=== PATIENT | male | born 1970 | race Caucasian/White ===

== ENCOUNTER 2016-11-15 00:51 | Emergency (ER) | payer OTHER ==
[2016-11-15] MEDS ORDERED: ONDANSETRON 4 MG/2 ML VIAL IVP STA (02:04)
[2016-11-15] MEDS ORDERED: SODIUM CHLORIDE 0.9% 1,000 ML IV ONE (02:05)
[2016-11-15] MEDS ORDERED: FAMOTIDINE 20 MG/2 ML VIAL IV STA (02:11)
[2016-11-15 02:34] LABS: Basophils % (A) 0 %; CH 28.9; CHCM 33.7; Eosinophils % (A) 0 %; HCT 42.3 % (39.0-53.0); HDW 2.37; HGB 14.1 gm/dL (13.0-17.5); Luc # (Auto) 0.06; Luc % (Auto) 1; Lymphocytes # (A) 0.6 k/uL (1.0-4.8); Lymphocytes % (A) 5 %; MCH 28.7 pg (25.0-35.0); MCHC 33.3 g/dL (31.0-37.0); MCV 86.1 fL (80.0-100.0); Mean Platelet Volume 7.5; Monocytes # (A) 0.6 k/uL (0-1.0); Monocytes % (A) 5 %; Neutrophils # (A) 11.1 k/uL (1.3-7.7); Neutrophils % (A) 90 %; RBC 4.91 m/uL (4.30-5.90); WBC 12.4 k/uL (3.8-10.6); WBC (Perox) 12.66
--- NOTE | 2016-11-15 02:35 | ED ---
General Adult HPI - General Chief complaint: Abdominal Pain Stated complaint: abd pain Time Seen by Provider: 11/15/16 01:19 Source: patient, RN notes reviewed Mode of arrival: ambulatory Limitations: no limitations - History of Present Illness Initial comments: This is a 45-year-old male who presents with epigastric pain that woke him up in the middle of the night on tuesday. Patient states the pain is constant. Patient has not taken anything for the pain. Patient also complains of nausea, but denies any vomiting, diarrhea or constipation. Patient denies any hematochezia, hematemesis, hematuria, dysuria, fever or chills. Patient denies any past medical history and patient is not currently on any medication. Patient denies any history of GERD. Patient denies tobacco, alcohol use or drug use. Patient has never had this pain before. Patient denies any recent fever, chills, shortness breath, cough, congestion, headache, chest pain,back pain, numbness, tingling, hematuria, headache, or visual changes, or any other complaints. - Related Data Previous Rx's Medication Instructions Recorded Ondansetron Odt [Zofran Odt] 4 mg PO Q8H 3 Days 11/15/16 traMADol HCL [Ultram] 50 mg PO Q6HR #12 tab 11/15/16 Allergies Allergy/AdvReac Type Severity Reaction Status Date / Time No Known Allergies Allergy Verified 11/15/16 00:57 Review of Systems ROS Statement: Those systems with pertinent positive or pertinent negative responses have been documented in the HPI. ROS Other: All systems not noted in ROS Statement are negative. Past Medical History Past Medical History: No Reported History History of Any Multi-Drug Resistant Organisms: None Reported Past Surgical History: No Surgical Hx Reported Past Psychological History: No Psychological Hx Reported Smoking Status: Never smoker Past Alcohol Use History: Rare Past Drug Use History: None Reported General Exam - General Exam Comments Initial Comments: General: The patient is awake and alert, in no distress, and does not appear acutely ill. Eye: Pupils are equal, round and reactive to light, extra-ocular movements are intact. No nystagmus. There is normal conjunctiva bilaterally. No signs of icterus. Ears: TMs pink and probably with intact cone of light bilaterally. Normal external ear canals. Nose: Nasal turbinates pink and moist. Mouth and throat: There are moist mucous membranes and no oral lesions. Neck: The neck is supple, there is no tenderness or JVD. Cardiovascular: There is a regular rate and rhythm. No murmur, rub or gallop is appreciated. Respiratory: Lungs are clear to auscultation, respirations are non-labored, breath sounds are equal. No wheezes, stridor, rales, or rhonchi. Gastrointestinal: There is tenderness to palpation in the epigastric area with voluntary guarding. There is mild generalized tenderness to palpation of the right upper and lower quadrants. Non-distended abdomen without masses or organomegaly noted. There is no rebound or guarding present. No CVA tenderness. Bowel sounds are unremarkable. Musculoskeletal: Normal ROM, no tenderness. Strength 5/5. Sensation intact. Radial pulses equal bilaterally 2+. Neurological: A&O x 3. CN II-XII intact, There are no obvious motor or sensory deficits. Coordination appears grossly intact. Speech is normal. Skin: Skin is warm and dry and no rashes or lesions are noted. Psychiatric: Cooperative, appropriate mood & affect, normal judgment. Limitations: no limitations Course Vital Signs 11/15/16 11/15/16 11/15/16 00:54 02:24 03:53 Temperature 98.1 F 98.5 F 97.6 F Pulse Rate 66 56 L 58 L Respiratory 18 20 16 Rate Blood Pressure 145/60 128/62 107/52 O2 Sat by Pulse 98 98 Oximetry Medical Decision Making - Medical Decision Making This is a 45-year-old male complains of epigastric pain. On physical exam There is tenderness to palpation in the epigastric area with voluntary guarding. There is mild generalized tenderness to palpation of the right upper and lower quadrants. Non-distended abdomen without masses or organomegaly noted. There is no rebound or guarding present. No CVA tenderness. Bowel sounds are unremarkable. Labs were drawn and reviewed. Patient has a mildly elevated white count. Patient was given Pepcid and Zofran in the EC today with no relief. Patient had one episode of vomiting in the EC today. A KUB was done and reviewed showing: Nonacute abdomen. Patient was given morphine in the EC today for pain with relief. Reported by Dr. Chaparro. A computed tomography scan of abdomen and pelvis with IV contrast was done and reviewed showing: Negative computed tomography scan of the abdomen and pelvis. Report read by Dr. Chaparro. Results are discussed with patient. Discussed the patient will receive a prescription for Zofran and tramadol today. Discussed use of Tylenol and or Motrin for pain and use of tramadol for breakthrough pain. Discussed use of [id number] Pepcid or Tums for additional pain relief. Discussed the patient should drink plenty of fluids. Discussed return parameters. Discussed that patient should follow up with PCP in one to 2 days or return to the EC for any worsening symptoms or for any further concerns. Patient was receptive to this plan and patient will be discharged home. I discussed his case with attending physician Dr. Valdes who agrees the plan as stated above. - Lab Data Result diagrams: 11/15/16 01:50 11/15/16 01:50 Lab Results 11/15/16 11/15/16 11/15/16 Range/Units 01:50 01:50 01:50 WBC 12.4 H (3.8-10.6) k/uL RBC 4.91 (4.30-5.90) m/uL Hgb 14.1 (13.0-17.5) gm/dL Hct 42.3 (39.0-53.0) % MCV 86.1 (80.0-100.0) fL MCH 28.7 (25.0-35.0) pg MCHC 33.3 (31.0-37.0) g/dL RDW 12.0 (11.5-15.5) % Plt Count 244 (150-450) k/uL Neutrophils % 90 % Lymphocytes % 5 % Monocytes % 5 % Eosinophils % 0 % Basophils % 0 % Neutrophils # 11.1 H (1.3-7.7) k/uL Lymphocytes # 0.6 L (1.0-4.8) k/uL Monocytes # 0.6 (0-1.0) k/uL Eosinophils # 0.0 (0-0.7) k/uL Basophils # 0.0 (0-0.2) k/uL PT 11.2 (9.0-12.0) sec INR 1.1 (<1.1) APTT 26.4 (22.0-30.0) sec Sodium 141 (137-145) mmol/L Potassium 4.6 (3.5-5.1) mmol/L Chloride 101 (98-107) mmol/L Carbon Dioxide 29 (22-30) mmol/L Anion Gap 11 mmol/L BUN 12 (9-20) mg/dL Creatinine 1.00 (0.66-1.25) mg/dL Est GFR (MDRD) Af Amer >60 (>60 ml/min/1.73 sqM) Est GFR (MDRD) Non-Af >60 (>60 ml/min/1.73 sqM) Glucose 98 (74-99) mg/dL Calcium 10.2 (8.4-10.2) mg/dL Total Bilirubin 1.4 H (0.2-1.3) mg/dL AST 24 (17-59) U/L ALT 35 (21-72) U/L Alkaline Phosphatase 43 (38-126) U/L Total Protein 7.3 (6.3-8.2) g/dL Albumin 4.6 (3.5-5.0) g/dL Amylase 51 (30-110) U/L Lipase 33 (23-300) U/L Disposition Clinical Impression: Nausea & vomiting, Gastroenteritis Disposition: HOME SELF-CARE Condition: Good Prescriptions: Ondansetron Odt [Zofran Odt] 4 mg PO Q8H 3 Days traMADol HCL [Ultram] 50 mg PO Q6HR #12 tab Referrals: None,Stated [Primary Care Provider] - 1-2 days Sirisha Serrato MD [STAFF PHYSICIAN] - 1-2 days Matt Siu MD [STAFF PHYSICIAN] - 1-2 days Time of Disposition: 04:14
[2016-11-15 02:42] LABS: INR 1.1 (<1.1); Partial Thromboplastin Time 26.4 sec (22.0-30.0); Prothrombin Time 11.2 sec (9.0-12.0)
[2016-11-15 02:50] LABS: ALT 35 U/L (21-72); AST 24 U/L (17-59); Alkaline Phosphatase 43 U/L (38-126); Amylase 51 U/L (30-110); Anion Gap 11 mmol/L; Blood Urea Nitrogen 12 mg/dL (9-20); Calcium 10.2 mg/dL (8.4-10.2); Carbon Dioxide 29 mmol/L (22-30); Chloride 101 mmol/L (98-107); Glucose 98 mg/dL (74-99); Non-African American GFR(MDRD) >60 (>60 ml/min/1.73 sqM); Potassium 4.6 mmol/L (3.5-5.1); Sodium 141 mmol/L (137-145); Total Bilirubin 1.4 mg/dL (0.2-1.3); Total Protein 7.3 g/dL (6.3-8.2)
[2016-11-15] MEDS ORDERED: MORPHINE SULFATE 2 MG/ML SYRINGE IV STA ×2 (02:52→03:01)
[2016-11-15] MEDS ORDERED: RX INFO: IV CONTRAST WAS GIVEN 1 EACH MISC MISCELLANE PRN (02:53)
--- NOTE | 2016-11-15 03:02 | XR ---
EXAMINATION TYPE: XR KUB DATE OF EXAM: 11/15/2016 2:43 AM COMPARISON: NONE HISTORY: Abdominal pain TECHNIQUE: 2 views FINDINGS: Bowel gas pattern is normal. There is no sign of intestinal obstruction or pneumoperitoneum . Fecal pattern is normal. Lung bases are clear. There are no pathologic calcifications over the kidn eys. IMPRESSION: Nonacute abdomen.
--- NOTE | 2016-11-15 04:00 | CT ---
EXAMINATION TYPE: CT abdomen pelvis w con DATE OF EXAM: 11/15/2016 3:20 AM COMPARISON: NONE HISTORY: mid to rt side abd pain and nausea for [address] DLP: 434.10 mGycm Automated exposure control for dose reduction was used. TECHNIQUE: Helical acquisition of images was performed from the lung bases through the pelvis. CONTRAST: Performed without Oral Contrast and with IV Contrast, patient injected with 100 mL of Omnipaque 300. FINDINGS: Lung bases are clear. There is no pleural effusion. Liver spleen pancreas and gallbladder appear norm al. Bile ducts are not dilated. There is no adrenal mass. Kidneys show satisfactory contrast opacific ation there is no hydronephrosis. There is no retroperitoneal adenopathy. Bladder distends smoothly. There is no sign of a pelvic mass. I see no intestinal wall thickening. Appendix is not seen. There i s no ascites. Bony structures are intact. IMPRESSION: NEGATIVE CT SCAN OF THE ABDOMEN AND PELVIS.
[2016-11-15 04:22] VITALS: BP 108/52; PULSE 56; RESP 20; TEMP 98.1
== END 2016-11-15 04:40 | disposition home or self-care (01) ==
LOC: EC 00:51
DX: K52.9 Noninfective gastroenteritis and colitis, unspecified (principal)
CPT/HCPCS: 96374; 96375 ×2; 99284; 36415; 80053; 82150; 83690; 85025; 85610; 85730; 74000; 74177; J2405; J2270; Q9967